=== PATIENT | male | born 1965 ===

== ENCOUNTER → 2018-07-23 14:52 | Outpatient (REF) | payer SELFPAY ==
[2018-07-23 16:04] LABS: Erythrocyte Sedimentation Rate 1 MM/HR (0-15)
== END ==
LOC: LAB 14:52
PROVIDERS: Visit Provider Family Medicine
DX: E11.9 Type 2 diabetes mellitus without complications (principal); E78.5 Hyperlipidemia, unspecified; E03.9 Hypothyroidism, unspecified; M25.572 Pain in left ankle and joints of left foot
CPT/HCPCS: 85651